=== PATIENT | female | born 1940 | race Caucasian/White ===

== ENCOUNTER → 2017-08-13 | Outpatient (CLI) | payer MEDICARE | LOC: CVU 07:00 | PROVIDERS: ATTEND Internal Medicine Cardiovascular Disease | DX: R93.1 Abnormal findings on diagnostic imaging of heart and coronary circulation (principal); I10 Essential (primary) hypertension | CPT/HCPCS: C8929 ==

== ENCOUNTER 2017-09-11 13:06 | Observation (INO) | payer MEDICARE ==
[~2017-09-11] VITALS: Ht 160 cm; Wt 40.0 kg
[2017-09-11] MEDS ORDERED: SODIUM CHLORIDE FLUSH 10ML SYR IVF ONE (14:00)
[2017-09-11] MEDS ORDERED: ASPIRIN 81 MG TABLET CHEW PO ONE (14:00)
[2017-09-11] MEDS ORDERED: ASPIRIN 81 MG TABLET CHEW ONE (14:15)
[2017-09-11 14:29] LABS: BASOPHILS # (AUTO) 0.04 x10^3/uL (0-0.1); BASOPHILS % (AUTO) 1 % (0-1); EOSINOPHILS # (AUTO) 0.01 x10^3/uL (0-0.4); EOSINOPHILS % (AUTO) 0 % (1-7); LYMPHOCYTES # (AUTO) 1.09 x10^3/uL (1-3.4); LYMPHOCYTES % (AUTO) 19 % (22-44); MD NO; MEAN CORPUSCULAR HEMOGLOBIN 32.9 pg (27.0-34.8); MEAN CORPUSCULAR HGB CONC 34.1 g/dL (32.4-35.8); MEAN CORPUSCULAR VOLUME 96.3 fL (80-100); MEAN PLATELET VOLUME 7.5 fL (7.4-10.4); MONOCYTES # (AUTO) 0.24 x10^3/uL (0.2-0.8); MONOCYTES % (AUTO) 4 % (2-9); NEUTROPHILS # (AUTO) 4.25 x10^3/uL (1.8-6.8); NEUTROPHILS % (AUTO) 75 % (42-75); PLATELET COUNT 316 x10^3/uL (130-400); RED BLOOD COUNT 4.53 x10^6/uL (3.82-5.3); RED CELL DISTRIBUTION WIDTH 12.6 % (9.6-15.2)
[2017-09-11] MEDS ORDERED: LISI2.5T PO (14:34)
[2017-09-11 14:38] LABS: ALBUMIN 3.8 g/dL (3.4-5.0); ANION GAP 7 mmol/L (5-15); CALCIUM 9.3 mg/dL (8.5-10.1); CHLORIDE 104 mmol/L (98-107)
[2017-09-11 14:43] LABS: ALANINE AMINOTRANSFERASE 29 U/L (12-78); ALKALINE PHOSPHATASE 51 U/L (45-117); BILIRUBIN,TOTAL 0.6 mg/dL (0.2-1.0); CREATININE 0.74 mg/dL (0.55-1.02); TOTAL PROTEIN 6.9 g/dL (6.4-8.2); TROPONIN I < 0.015 ng/mL (0.000-0.045)
[2017-09-11] MEDS ORDERED: OMNIPAQUE 350 MG/ML, 100ML BOTTLE ONE (16:55)
[2017-09-11] MEDS ORDERED: ACETAMINOPHEN 325 MG TABLET PO PRN (17:30)
[2017-09-11] MEDS ORDERED: LABETALOL 5MG/ML, 20ML IVPush PRN (17:30)
[2017-09-11 19:23] LABS: TROPONIN I < 0.015 ng/mL (0.000-0.045)
[2017-09-11] MEDS: LISINOPRIL 5 MG TABLET PO SCH (19:43)
[2017-09-11] MEDS ORDERED: ENOXAPARIN 40 MG/0.4 ML SQ SCH (20:00)
[2017-09-11 20:07] VITALS: BP 173/75
[2017-09-11 22:02] VITALS: BP 138/67
[2017-09-12 01:22] LABS: CHOL/HDL RATIO 1.8; LDL/HDL RATIO 0.6 (0.5-3.0)
[2017-09-12 01:34] LABS: TROPONIN I < 0.015 ng/mL (0.000-0.045)
[2017-09-12 02:23] VITALS: BP 128/64
[2017-09-12] MEDS ORDERED: ASPIRIN 81 MG TABLET EC PO SCH (06:00)
[2017-09-12 07:18] VITALS: BP 144/68
[2017-09-12] MEDS ORDERED: PANTOPROZOLE 40MG TABLET PO SCH (07:30)
[2017-09-12] MEDS: LISINOPRIL 5 MG TABLET PO SCH (09:01)
== END 2017-09-12 09:54 | disposition home or self-care (01) ==
LOC: ED 16:00 → EDIP 16:01 → OBSVTOIN 16:01 → INTOOBSV 16:01 → ED 16:14 → SUATTDRO 16:22 → 5SO 19:18 → DCLOUNGE 09-12 09:29
PROVIDERS: ADMIT Internal Medicine; ATTEND Internal Medicine
DX: R07.89 Other chest pain (principal); F41.9 Anxiety disorder, unspecified; I10 Essential (primary) hypertension; I35.1 Nonrheumatic aortic (valve) insufficiency; Z87.891 Personal history of nicotine dependence; Z68.1 Body mass index [BMI] 19.9 or less, adult
CPT/HCPCS: 36415; 71045; 71275; 80053; 80061; 83880; 84484; 85025; 93005; 99285; G0378; Q9967